=== PATIENT | female | born 1955 | race African-American/Black ===

== ENCOUNTER 2018-11-01 07:06 | Day surgery (SDC) | payer OTHER ==
--- NOTE | 2018-10-30 09:45 | PREOPHP ---
DATE OF ADMISSION: 11/01/2018 HISTORY OF PRESENT ILLNESS: This is a 63-year-old female, 5, para 5. This patient was refer red to me from her clinic for a uterine mass. The patient has menstrual period was in 2014 at age 59 . The patient was visiting a physician for a general exam. She was diagnosed with a cervical mass. For this, she was referred to me. The patient was diagnosed at [facility] with an ultrasound with f ibroid uterus and endometrial hyperplasia. PAST MEDICAL HISTORY: Hypertension. The patient otherwise had no major medical antecedents. No praveen geries and she is on medication for hypertension. REVIEW OF SYSTEMS: She has no history of lung disease. No history of any major heart problems excep t for hypertension. No GI problems, no endocrine problems, neurological or hematological or orthoped ic problems. ALLERGIES: SHE IS NOT ALLERGIC TO ANY MEDICATION. SOCIAL HISTORY: She does not drink or smoke. FAMILY HISTORY: Hypertension. MEDICATIONS: 1. She is on Metoprolol. 2. Losartan. 3. Amlodipine. 4. Hydrochlorothiazide. PHYSICAL EXAMINATION: VITAL SIGNS: Blood pressure is 130/90, pulse is 80, respirations 16. The patient weighs 170. She i s 5 feet 3 inches. HEAD AND NECK: Normal. BREASTS: Soft, nontender, no masses. CHEST: Clear. HEART: Normal sinus rhythm. BACK: Normal. ABDOMEN: Soft, nontender, no masses. GENITALIA: Normal external genitalia. Cervix with a large mass that is protruding out of the cervix as an aborting fibroid, possible fibroid instead of a polyp. The uterus retroverted, flexed with fi broids that were possibly a uterine size of 8 cm. PLAN: The patient was advised for a D and C, cervical mass fixation, possible hysteroscopy, possible myomectomy. An ultrasound from her was done at [facility] and she had no other problems. She has be en advised of the possible risks and possible complications of the procedure with her alternatives an d options. Written information was provided. She had no more questions and agreed to go ahead with the procedure with full understanding and no more questions. Dictated By: ROSALINA PONCE/MAX Conf#: [id number] DID#: [id number]
[2018-11-01] VITALS (14 sets, daily range): BP systolic 105–164; BP diastolic 73–97; PULSE 52–68; RESP 14–22; Ht 160 cm; Wt 77.7 kg
[~2018-11-01] VITALS: Ht 160 cm; Wt 77.7 kg
[~2018-11-01 07:06] MED LIST: DESFLURANE 15 MIN ONE; EPHEDrine SULFATE 50 MG/5 ML SYG ONE
[2018-11-01] MEDS ORDERED: ACETAMINOPHEN 500 MG TAB PO ONE (07:30)
[2018-11-01] MEDS ORDERED: ACETAMINOPHEN 500 MG TAB ONE (08:28)
[2018-11-01] MEDS ORDERED: CLON0.2T5 PO (08:29)
[2018-11-01] MEDS ORDERED: LOSA100T15 PO (08:29)
[2018-11-01] MEDS ORDERED: METO-429 PO (08:29)
[2018-11-01] MEDS ORDERED: HYDR25TA6 PO (08:30)
--- NOTE | 2018-11-01 08:33 | PREAC ---
Date/Time of Note Date/Time of Note DATE: 11/01/18 TIME: 08:30 Anesthesia Eval and Record Evaluation Time Pre-Procedure Interview DATE: 11/01/18 TIME: 08:30 Age 63 Sex female NPO: 8 hrs Preoperative diagnosis fibroid uterus, endometrial hyperplasia Planned procedure hysteroscopy d&c, cervical mass excision poss vaginal myomectomy Past Medical History Past Medical History: Includes Cardio: HTN Surgery & Anesthesia Issues No known issue Meds Anticoagulation: No Beta Robel within 24 hr: Yes Reported Medications Hydrochlorothiazide* (Hydrochlorothiazide*) 25 Mg Tab, 25 MG PO BID, #30 TAB 11/01/18 Clonidine Hcl* (Clonidine Hcl*) 0.2 Mg Tablet, 0.2 MG PO DAILY, TAB 11/01/18 Metoprolol Tartrate* (Lopressor*) 50 Mg Tab, 50 MG PO BID, #60 TAB 11/01/18 Losartan Potassium* (Losartan Potassium*) 100 Mg Tablet, 100 MG PO DAILY, TAB 11/01/18 Meds reviewed: Yes Allergies Coded Allergies: No Known Allergy (Unverified , 11/01/18) Allergies Reviewed: Yes Labs/Studies Labs Reviewed: Reviewed by anesthesiologist Blood Bank Test 11/01/18 08:06 Blood Product Summary Counts test: N/A Studies: ECG (sb w/ 1st degree AVB, nml ecg), CXR (no active dz) Pre-procedure Exam Airway: Adequate mouth opening, Adequate thyromental dist Mallampati: Mallampati II Teeth: Normal Lung: Normal Heart: Normal ASA Physical Status ASA physical status: 2 Emergency: None Planned Anesthetic General/MAC: LMA Pre-operative Attestations Prior to commencing anesthesia and surgery, the patient was re-evaluated, there was verification of: *The patient's identity *The results of appropriate recent lab work and preoperative vital signs *The above evaluation not changing prior to induction *Anesthetic plan, risk benefits, alternative and complications discussed with patient/family; questions answered; patient/family understands, accepts and wishes to proceed. HILDA GARCIA Nov 01, 2018 08:33
[2018-11-01] MEDS ORDERED: PROPOFOL 40 ML ONE (08:49)
[2018-11-01] MEDS ORDERED: MIDAZOLAM 1 MG/ML 2 ML INJ ONE (08:49)
[2018-11-01] MEDS ORDERED: DEXAMETHASONE 4 MG/ML 5 ML INJ ONE (08:50)
[2018-11-01] MEDS ORDERED: FAMOTIDINE 20 MG INJ ONE (08:50)
[2018-11-01] MEDS ORDERED: CEFAZOLIN 1 GM INJ ONE (08:50)
[2018-11-01] MEDS ORDERED: ONDANSETRON 4 MG INJ ONE (08:50)
[2018-11-01] MEDS ORDERED: LIDOCAINE 2% (SDV) 5 ML INJ ONE (08:50)
[2018-11-01] MEDS ORDERED: FENTAnyl 50 MCG/ML VIAL ONE (08:50)
[2018-11-01] MEDS ORDERED: HYDROmorphONE 1 MG/5 ML IV SYRINGE IV PRN ×2 (09:00)
[2018-11-01] MEDS ORDERED: ALBUTEROL 0.083% (NEB) 2.5 MG/3 ML AMP HHN PRN (09:00)
[2018-11-01] MEDS ORDERED: LABETALOL HCL 20MG INJ IV PRN (09:00)
[2018-11-01] MEDS ORDERED: DIPHENHYDRAMINE 50 MG INJ IV PRN (09:00)
[2018-11-01] MEDS ORDERED: MEPERIDINE 25 MG INJ IV PRN (09:00)
[2018-11-01] MEDS ORDERED: OXYCODONE/ACETAMINOPHEN (5/325) TAB PO PRN ×2 (09:00)
[2018-11-01] MEDS ORDERED: FENTAnyl 50 MCG/ML VIAL IV PRN ×2 (09:00)
[2018-11-01] MEDS ORDERED: morphine (1 MG/ML) 10ML SYRINGE IV PRN ×2 (09:00)
[2018-11-01] MEDS ORDERED: ONDANSETRON 4 MG INJ IV PRN (09:00)
[2018-11-01] MEDS ORDERED: KETOROLAC 30 MG INJ ONE (09:49)
[2018-11-01] MEDS ORDERED: OXYTOCIN 10 UNIT INJ ONE (10:27)
--- NOTE | 2018-11-01 10:42 | HPN ---
Date/Time of Note Date/Time of Note DATE: 11/01/18 TIME: 10:42 Interval H&P Admission Note Pt. seen H&P reviewed: No system changes ROSALINA BEY MD Nov 01, 2018 10:42
--- NOTE | 2018-11-01 10:43 | PD.PPDC ---
CUSTOMER ACCOUNT TECHNICIAN Discharge Instruction Condition [id number] Patient Condition: Cedjn1o Good Activity/Restrictions [id number] Activity: [id number] Normal Activity May Shower Fnalw9Oz Restrictions: Frwdh6x No Exercising No Lifting No Driving No Sexual Activity Nothing in the Vagina No [place] No Tampons, douche Follow-up Follow-up with Physician: 2, Week/Weeks Return to clinic for [id number] MICROCOMPUTER SUPPORT SPECIALIST Instructions: Kyxtf7y Fever greater than 101 Chills Worsening abdominal pain Excessive Vaginal Bleeding More than 2 pads per hour Unable to tolerate diet ROSALINA BEY MD Nov 01, 2018 10:43
--- NOTE | 2018-11-01 10:47 | SIPON ---
Date/Time of Note Date/Time of Note DATE: 11/01/18 TIME: 10:45 Operative Report Preoperative Diagnosis Cervical mass aborting through cervix Fibroid uterus Possible intracavitary fibroids Hypertension Rule out malignancy Postoperative Diagnosis Same Operation/Procedure Performed Endocervical myomectomy hysteroscopic partial myomectomy with true clear hysteroscope Surgeon see signature line visitor service assistant None Anesthesia: general Estimated blood loss: 0 - 10 ml's Transfusion Required none Specimen Endocervical mass excision Endometrial masses Grafts/Implants none Complications none ROSALINA BEY MD Nov 01, 2018 10:47
--- NOTE | 2018-11-01 10:50 | PAC ---
Date/Time of Note Date/Time of Note DATE: 11/01/18 TIME: 10:50 Post-Anesthesia Notes Post-Anesthesia Note Last documented vital signs Vital Signs Date Temp Pulse Resp B/P Pulse Ox O2 O2 Flow FiO2 Time (MAP) Delivery Rate 11/01/18 97.6 97.2 63 61 16 16 147/75 96 97 Room 08:36 104 (99) 137 Air face mask 4L Activity: WNL Respiratory function: WNL Cardiovascular function: WNL Mental status: Baseline Pain reasonably controlled: Yes Hydration appropriate: Yes Nausea/Vomiting absent: Yes HILDA GARCIA Nov 01, 2018 10:50
[2018-11-01] MEDS: HYDROmorphONE 1 MG/5 ML IV SYRINGE IV PRN ×2 (11:06→11:12)
--- NOTE | 2018-11-01 15:28 | OPR ---
DATE OF OPERATION: 11/01/2018 PREOPERATIVE DIAGNOSIS: POSTOPERATIVE DIAGNOSIS: OPERATIONS PERFORMED: Endocervical myomectomy, hysteroscopic partial myomectomy with TruClear hyster oscope. SURGEON: Rosalina Crockett MD ANESTHESIA: General. ANESTHESIOLOGIST: Adry Do CRNA DESCRIPTION OF PROCEDURE: The patient was given general anesthesia, placed in the lithotomy position . The perineal and vaginal area were prepped and draped. Examination under anesthesia revealed that there was marked vaginal atrophy. The cervix with the aborting fibroid of about 3 to 4 cm. The sokaogon fabrice with multiple fibroids. The vaginal speculum was applied. The fibroid was held at the isthmus p ortion at the stalk portion and the stalk was twisted and the fibroid was removed. The hysteroscope number 8 was placed inside and the visualization of the endometrial cavity revealed that there were m ultiple fibroids and polyps, soft masses and heart masses all around the cavity. The hysteroscope wa s placed with a setting for fibroid and for polyps with a different resectoscope and the soft masses first were resected, then the fibroids were partially resected. We abandoned that because of a liqui d loss of 2800. We stopped at this moment, and we applied Fibrillar inside the cavity due to some bl eeding from the partial myomectomy, which completed as normal and stopped. The patient was given IV Pitocin and the cavity bleeding stopped with the Fibrillar. The patient tolerated the procedure well and left the OR awake and stable. Sponge counts and instrument counts were correct. Intravenous an tibiotics were given for prophylaxis. Blood loss was minimal, and the urine was clear at the end of the procedure. Dictated By: ROSALINA PONCE/MAX Conf#: [id number] DID#: [id number]
--- NOTE | 2018-11-01 17:33 | RADRPT ---
Vent Rate: 59 bpm RR Interval: 0 msec [place] Interval: 214 msec QRS Duration: 88 msec QT Interval: 424 msec QTC Interval: 419 msec P-R-T [place]: 58 - 39 - 33 degrees Sinus bradycardia with 1st degree AV block Otherwise normal ECG Electronically Signed By: Haris Goddard
== END 2018-11-01 12:45 | disposition home or self-care (01) ==
LOC: SDS 07:06
PROVIDERS: ATTEND Obstetrics & Gynecology
DX: D25.9 Leiomyoma of uterus, unspecified (principal)
CPT/HCPCS: 58561; 86850; 86900; 86901; 86920; 88305; 93005; J0690; J1170; J2175; J2250; J2405; J2590; J3010; Z7512; Z7610; J1100; J1885